=== PATIENT | female | born 1965 ===

== ENCOUNTER 2018-04-17 13:40 | Outpatient (CLI) | payer OTHER | END 2018-04-17 13:41 | disposition home or self-care (01) | LOC: C.LAB 13:40 | DX: E78.1 Pure hyperglyceridemia (principal) ==

== ENCOUNTER 2018-05-21 10:53 | Outpatient (CLI) | payer OTHER | END 2018-05-21 10:54 | disposition home or self-care (01) | LOC: C.LAB 10:53 | DX: Z13.9 Encounter for screening, unspecified (principal); I10 Essential (primary) hypertension ==